=== PATIENT | female | born 1965 | race Caucasian/White ===

== ENCOUNTER 2016-08-18 22:02 | Emergency (ER) ==
[2016-08-18] MEDS ORDERED: TYLENOL PO ONE (22:27)
[2016-08-18] MEDS ORDERED: ZOFRAN ODT PO ONE (22:27)
[2016-08-18 22:45] LABS: URINE CULTURE NEEDED? NO; URINE MICRO REVIEW NEEDED? NO; URINE SOURCE CLEAN CATCH
[2016-08-18 23:14] LABS: BILIRUBIN URINE NEGATIVE (NEGATIVE); BLOOD URINE NEGATIVE (NEGATIVE); COLOR YELLOW; GLUCOSE URINE 70 mg/dL (NEGATIVE); LEUKOCYTES URINE NEGATIVE (NEGATIVE); NITRITE URINE NEGATIVE (NEGATIVE); PROTEIN URINE NEGATIVE (NEGATIVE); SP GRAVITY URINE 1.028; TURBIDITY URINE CLEAR (CLEAR); UR EPITHELIAL CELLS <10 /HPF (<10); URINE BACTERIA 1+ /HPF; URINE RBC <10 /HPF (<10); URINE WBC <10 /HPF (<10); UROBILINOGEN URINE NORMAL (NORMAL)
--- NOTE | 2016-08-18 23:27 | PROVIDER DOCUMENTATION ---
HPI-General Adult - General Chief Complaint: Cold Symptoms Stated Complaint: NAUSEA, JACKSON, FLU SX Time Seen by Provider: 08/18/16 22:16 Source: patient Allergies/Adverse Reactions: Patient Allergies Allergy/AdvReac Type Severity Reaction Status Date / Time No Known Allergies Allergy Verified 08/18/16 22:19 Home Medications: Alprazolam [Xanax] 0.5 mg PO TID 08/18/16 Metoprolol Succinate [Toprol Xl] 25 mg PO DAILY 08/18/16 - History of Present Illness -Gen Adult Nature of Presenting Problems: 50 y/o f presents to the ed with flu like symptoms. pt states she had chills, jackson , and nausea with an onset of this evening. pt denies any chest pain/ palpitations Location of Pain/Injury: reports: generalized Quality of Pain: reports: aching Severity: reports: mild Onset/Duration: reports: this evening Timing: reports: still present Associated Symptoms: reports: fever/chills, muscle aches, sinus congestion/ drainage, nausea Similar Symptoms Previously?: No Recently seen or treated by another doctor?: No Review of Systems - Adult - REVIEW OF SYSTEMS - ADULT Constitutional: reports: chills. denies: fever Gastrointestinal: reports: nausea. denies: vomiting Neurological: reports: headache/migraines. denies: dizziness/vertigo Past History - Adult - PAST MEDICAL HISTORY-ADULT Review of Records: reports: Old Records Reviewed, Nursing Assessment Review, Medications Reviewed Major Childhood Illnesses: reports: denies history Cardiovascular: reports: pacemaker (sick sinus syndrome) Respiratory: reports: denies history Gastrointestinal: reports: denies history Obstetrical/Gynecological: reports: denies history Genitourinary: reports: denies history Musculoskeletal: reports: denies history Neurological: reports: denies history Endocrine/Immune: reports: denies history Other Conditions: reports: denies history - PRIOR SURGERIES/PROCEDURES Surgical/Procedure History: reports: pacemaker, hysterectomy - IMMUNIZATION STATUS Childhood Immunizations: See Nurse Assessment Flu Vaccine: See Nurse Assessment - FAMILY HISTORY Family History: reviewed, not pertinent - SOCIAL HISTORY Smoking: non-smoker Substance Use: none/never Alcohol Use Frequency: never Physical Exam-General - PHYSICAL EXAM-ADULT Initial Vital Signs Reviewed: Yes - CONSTITUTIONAL General Appearance: alert, no apparent distress - EYES Eyes: PERRL/EOMI, pink conjunctivae, fundi clear, no AV nicking - HEAD, EARS, NOSE, MOUTH & THROAT HENMT: normocephalic/atraumatic, moist mucous membranes, normal ENT inspection - NECK Neck: non-tender, full range of motion, supple - RESPIRATORY Respiratory: chest non-tender, lungs clear, normal breath sounds - CARDIOVASCULAR Cardiovascular: normal peripheral pulses, regular rate, rhythm - GASTROINTESTINAL (ABDOMEN) Abdominal Exam: normal bowel sounds, non tender, soft - MUSCULOSKELETAL Back Exam: normal inspection - SKIN Integumentary: normal color, normal turgor, warm/dry - PSYCHIATRIC Psych/Mental Status: normal mood/affect, normal thought content, normal thought process, oriented x 3 Progress - PLAN OF CARE/RESULTS Progress/Plan/Lab Results: plan of care: labs, imaging Laboratory Tests 08/18/16 22:44 Urine Source CLEAN CATCH Urine Color YELLOW Urine Turbidity CLEAR Urine pH 6.0 Ur Specific [place] 1.028 Urine Protein NEGATIVE Ur Glucose (Stick) 70 A Ur Ketones (Stick) NEGATIVE Urine Blood NEGATIVE Urine Nitrite NEGATIVE Urine Bilirubin NEGATIVE Urobilinogen Dipstick NORMAL Urine Leukocytes NEGATIVE Urine WBC (Auto) <10 Urine RBC (Auto) <10 U Epithel Cells (Auto) <10 Urine Bacteria (Auto) 1+ Orders Category Date Time Status ED: Urine Bedside ORDERED Care 08/18/16 22:27 Active CHEST-2 VIEWS [RAD] Stat Exams 08/18/16 22:55 Taken DIRECT STREP Stat Lab 08/18/16 22:15 Completed Flu Swab [INFLUENZA SCREEN A/B] Stat Lab 08/18/16 22:15 Completed URINALYSIS W/POSS RFLX CULT [URINALYSIS] Stat Lab 08/18/16 22:44 Completed Acetaminophen [Tylenol] Med 08/18/16 22:27 Discontinued 1,000 mg PO NOW ONE Ondansetron Odt [Zofran Odt] Med 08/18/16 22:27 Discontinued 4 mg PO NOW ONE Vital Signs - 24 hr 08/18/16 22:14 Temperature 98.2 F Pulse Rate 68 Respiratory 16 Rate Blood Pressure 122/62 O2 Sat by Pulse 100 Oximetry - XRAY 1 XRAY Study: Chest XRAY Interpretation: normal Departure - Departure Time of Disposition Order: 23:21 DIAGNOSIS: Flu-like symptoms Disposition: HOME 01 Certified Medical Emergency: Emergent Condition: Stable Additional Instructions: ED Follow Up Instructions: You have been treated by a care provider in the Emergency Department. These instructions are being provided to you so you can have an understanding of how to care for yourself upon discharge. Upon discharge from the Emergency Department, you are responsible for making arrangements for follow-up care by a physician of your choice. Take all prescribed medications as directed. Return to the Emergency Department immediately for any new or worsening symptoms. You may call the Physician Referral phone number at [phone] to obtain a list of Physicians who are taking new patients. Referrals: Hans Sosa MD [Primary Care Provider] - Attestation - Scribe Verification/Attestation Scribe:: Capri Shore Acting as Scribe for:: Abraham Harrington Scribe documention review:: This chart was documented by a scribe and accurately reflects the service the provider performed and the decisions made by the provider.
[2016-08-18 23:38] VITALS: BP 120/69
--- NOTE | 2016-08-19 08:01 | Diag Imaging Result Document ---
PROCEDURE NAME: CHEST-2 VIEWS - 08/18/2016 2 VIEWS OF THE CHEST: FINDINGS: Normal chest.
== END 2016-08-18 23:39 | disposition home or self-care (01) ==
LOC: ED 22:02
DX: J11.1 Influenza due to unidentified influenza virus with other respiratory manifestations (principal); R11.0 Nausea; R51 Headache; R68.83 Chills (without fever); M79.1 Myalgia; R09.81 Nasal congestion; Z79.899 Other long term (current) drug therapy; Z95.0 Presence of cardiac pacemaker
CPT/HCPCS: 71020; 81001; 87081; 87430; 87804; 99282